=== PATIENT | female | born 1960 | race Two or more races ===

== ENCOUNTER → 2019-07-01 | Outpatient (CLI) | payer BC, MEDICAID, SELFPAY ==
[2019-07-01 17:33] LABS: Chlamydia Trachomatis by PCR Negative (Negative); Neisserai gonorrhoeae by PCR Negative (Negative); Probe Check PASS; Sample Adequacy Control PASS; Specimen Processing Control PASS
== END | disposition home or self-care (01) ==
PROVIDERS: Visit Provider Advanced Practice Midwife
DX: N76.2 Acute vulvitis (principal); N77.1 Vaginitis, vulvitis and vulvovaginitis in diseases classified elsewhere
CPT/HCPCS: 87491; 87591

== ENCOUNTER → 2019-08-03 | Outpatient (CLI) | payer BC, MEDICAID, SELFPAY ==
[2019-08-11 12:07] LABS: Age Gdln ACOG Testing 30-65 (.); HPV Genotype 16, Aptima Negative (Negative)
[2019-08-11 13:36] LABS: HPV APTIMA, High Risk Positive (Negative)
[2019-08-11 13:37] LABS: HPV Genotype 18,45 Aptima Positive (Negative); HPV Reflexed? YES, CHARGE PATIENT
== END | disposition home or self-care (01) ==
LOC: LABSPEC 16:29
PROVIDERS: Referring Provider Advanced Practice Midwife; Visit Provider Advanced Practice Midwife
DX: Z12.4 Encounter for screening for malignant neoplasm of cervix (principal)
CPT/HCPCS: 87624; 88175; G0145

== ENCOUNTER → 2019-09-29 14:15 | Outpatient (CLI) | payer MEDICARE, MEDICAID, SELFPAY ==
--- NOTE | 2019-09-29 | IMM_PTH ---
PATIENT: SWAPNA SANCHEZ LOC: [facility] U#:[id number] AGE/SX: 65/F ROOM: RE09/29/[address]: Mechelle Chauhan CNM : 1960 BED: DIS: SPEC #: [id number] RECD: 10/03/19 12:35 STATUS: EBEN REShoaib #: [id number] RALPH: 09/29/19 00:[address]: Mechelle Chauhan DEPT: IMMUNOHISTOCHEMISTRY RECD BY: Lina Nicholas Tissues: A - Uterine cervix, NOS Procedures: p16 (initial) KI-67 (add) PHYSICIAN & INSTITUTION [place] [id number] SPECIMEN INFORMATION: Tissue Source: A - Cervical biopsy four quad Clinical Info: Positive HPV Specimen Number: [id number] CPT code: 25259, 85137 METHODOLOGY: Deparaffinized sections of prefer/formalin-fixed tissue or PAP/DQ stained slides are incubated with monoclonal/polyclonal antibodies/oligonucleotide probes. Localization is made via biotin free immunoperoxidase method. Appropriate controls are performed and reacted as expected. Results on target cell population are indicated in the following table: RESULTS: ANTIBODY / CLONE RESULT Block A P16 (E6H4) positive, focal block-like Ki-67 (30-9) positive, moderate These tests were developed and their performance characteristics determined by [facility]. They may not have been cleared or approved by the [place] Food and Drug Administration. The FDA has determined that such clearance or approval is not necessary. The above immunohistochemical/dualISH markers are ordered and reviewed by the Pathologist. INTERPRETATION: A. Cervix, four quad biopsy: Consistent with moderate squamous dysplasia, VALERIE II (HSIL). AM:abe 10/04/19 Case has been reviewed in consultation with Dr. Larry who concurs with the above diagnosis. IDC:SJ
--- NOTE | 2019-09-29 14:15 | CER_PTH ---
PATIENT: SWAPNA SANCHEZ LOC: [facility] U#:[id number] AGE/SX: 65/F ROOM: RE09/29/[address]: Mechelle Chauhan CNM : 1960 BED: DIS: SPEC #: [id number] RECD: 09/29/19 17:00 STATUS: EBEN NEGIN #: [id number] RALPH: 09/29/19 14:[address]: Vincent De Jesus DEPT: SURGICAL PATHOLOGY RECD BY: Haider Alfonso ENTERED: 09/30/19 11:53 SP TYPE: CERV OTHR DR: Mechelle Chauhan CNM Tissues: A - Uterine cervix, NOS B - Endocervical Procedures: Surgery Specimen Level IV HEADER OPERATION: Colposcopy PRE-OP DIAGNOSIS: Positive HPV R87.810 TISSUE SUBMITTED: A - Cervical biopsy four quad, B - [facility] MICROSCOPIC DIAGNOSIS A. Cervix, four quad biopsy: Mild to focal moderate squamous dysplasia, VALERIE I-II (HGSIL). Changes consistent with HPV cytopathic effect. See comment. B. Endocervix, curettings: Strips of benign superficial endocervix. Rare fragments of detached benign squamous mucosa. AM:abe 10/03/19 COMMENT A. Results from immunohistochemistry ([id number]) for surrogate HPV marker (p16) will be reported separately. Case has been reviewed in consultation with Dr. Larry who concurs with the above diagnosis. IDC:SJ MICROSCOPIC DESCRIPTION Slides are reviewed. GROSS DESCRIPTION A - Received in fixative is one container labeled with the patient's name and designated cervical biopsy four quad. The specimen consists of multiple irregular fragments of light hernandez soft tissue that in aggregate measure 2 x 0.6 x 0.1 cm. The specimen is totally submitted in one cassette. B - Received in fixative is one container labeled with the patient's name and designated endocervix. The specimen consists of dark hernandez mucoid material aggregating to 1.3 x 1 x 0.1 cm. The specimen is totally submitted in one cassette. / AM:abe 09/30/19 TC:4 CPT: 16416 x2
== END ==
PROVIDERS: Referring Provider Advanced Practice Midwife; Visit Provider Advanced Practice Midwife
DX: R87.810 Cervical high risk human papillomavirus (HPV) DNA test positive (principal)
CPT/HCPCS: 88305; 88341; 88342